=== PATIENT | female | born 1985 | race Caucasian/White ===

== ENCOUNTER 2017-09-27 05:31 | Inpatient (IN) | payer OTHER ==
[2017-09-26 11:16] VITALS: BMI 25.0
[2017-09-27] MEDS ORDERED: CEFAZOLIN/Water 2 GM/20 ML SYRINGE ONE (05:57)
[2017-09-27] MEDS ORDERED: Midazolam HCl 2 mg/2 ml Vial ONE (06:08)
[2017-09-27] MEDS ORDERED: Fentanyl 250 MCG/5 ML VIAL ONE (06:08)
[2017-09-27] MEDS ORDERED: Thrombin 5000 UNITS/5 ML VIAL ONE (06:16)
[2017-09-27] MEDS ORDERED: Sodium Chloride 0.9% 20 ML ONE (06:16)
[2017-09-27 06:29] LABS: Hemoglobin 14.2 g/dL (12.0-16.0); Mean Corpuscular HGB CONC 33.6 g/dL (32.0-36.0); Mean Corpuscular Hemoglobin 34.5 pg (27.0-31.0); Mean Platelet Volume 6.5 fL (7.4-10.4); Platelet Count 306 thou/uL (130-400); RBC Distribution Width 10.9 % (11.5-14.5); Red Blood Cell (RBC) Count 4.13 mill/uL (4.20-5.40); White Blood Cell (WBC) Count 7.1 thou/uL (4.8-10.8)
[2017-09-27 06:36] LABS: PTT 27.1 SEC (22.9-36.1); Prothrombin Time 13.2 SEC (12.0-14.7)
--- NOTE | 2017-09-27 06:51 | HP ---
REASON FOR ADMISSION: Here for neck surgery. HISTORY OF PRESENT ILLNESS: Ms. Carvalho is a 32-year-old woman who has experienced neck pain, imbalanc e and arm numbness for a number of years. MR images of the cervical spine reveal intervertebral disk disease causing both cervical spinal stenosis as well as foraminal disease at C5-6 and C6-7 and noreen use of the cord compression and imbalance she was offered surgical intervention. She is here for justin t operation. PAST MEDICAL HISTORY: Thyroid cancer, epilepsy and neck pain. PAST SURGICAL HISTORY: Thyroidectomy at age 24. Right shoulder rotator cuff surgery, left shoulder rotator cuff surgery and tubal ligation. MEDICATIONS: Naproxen and methocarbamol, as well as [place] and Flexeril for pain. She occasionally h as taken Valium and Fioricet in the past, but not currently. She takes levothyroxine and ____, ALLERGIES: No known drug allergies. FAMILY HISTORY: Father is alive with diabetes, hypertension, heart disease. She lists her mother as and with heart disease. SOCIAL HISTORY: She recently quit smoking. She is from a family of smokers, however. REVIEW OF SYSTEMS: Otherwise negative. PHYSICAL EXAMINATION: There is mild weakness of wrist extensors and finger extensors on the left. T here is also some C7 sensation on the left. The remainder of the motor sensory function in the upper extremities is normal. Normal findings on physical examination include her cranial nerves II-XII, cerebellar exam, cognitive function, level of ____ in her reflexes. IMAGING: Imaging studies with MR imaging of the cervical spine showing intervertebral disk disease r esulting in stenosis and foraminal compression at C5-6 and C6-C7. Flexion, extension x-rays are stab le. ASSESSMENT: Intervertebral disk disease with a combination of radiculopathy and cord compression at C5-6 and C6-7. PLAN: Today we will be performing a 2-level ACDF. If she does well and is safe for activities of [facility]. She can be discharged. Follow up arrangements will be made.
[2017-09-27] MEDS ORDERED: Lidocaine 1% PF 5 ML VIAL ONE (07:32)
[2017-09-27] MEDS ORDERED: PROPOFOL 200 MG/20 ML VIAL ONE (07:32)
[2017-09-27] MEDS ORDERED: Ondansetron HCl/PF 4 MG/2 ML Vial ONE (07:32)
[2017-09-27] MEDS ORDERED: ePHEDrine/0.9% NaCl/PF SYRINGE 50 mg/10 ml ONE (07:32)
[2017-09-27] MEDS ORDERED: Glycopyrrolate 0.2 MG/ML 5 ML SYRINGE ONE (07:32)
[2017-09-27] MEDS ORDERED: Dexamethasone 20 MG/5 ML VIAL ONE (07:32)
[2017-09-27] MEDS ORDERED: Fentanyl 100 MCG/2 ML VIAL ONE ×2 (09:39→10:59)
[2017-09-27] MEDS ORDERED: Morphine Sulfate 2 MG/ML SYRINGE SLOW IVP PRN (10:13)
[2017-09-27] MEDS ORDERED: Promethazine HCl 25 MG/ML VIAL SLOW IVP PRN (10:13)
[2017-09-27] MEDS ORDERED: HYDROmorphone 2 MG/ML VIAL SLOW IVP PRN (10:13)
[2017-09-27] MEDS ORDERED: Acetaminophen/Codeine 30-300mg Tablet PO PRN ×2 (10:14)
[2017-09-27] MEDS ORDERED: Morphine 4 MG/ML VIAL SLOW IVP PRN (10:14)
[2017-09-27] MEDS ORDERED: Promethazine HCl 12.5 MG SUPP PR PRN (10:14)
[2017-09-27] MEDS ORDERED: diphenhydrAMINE 50 MG/ML VIAL IVP PRN (10:14)
[2017-09-27] MEDS ORDERED: tiZANidine HCl 4 MG TAB PO PRN (10:14)
[2017-09-27] MEDS ORDERED: Promethazine HCl 25 MG/ML VIAL IM PRN (10:14)
[2017-09-27] MEDS ORDERED: Ondansetron HCl/PF 4 MG/2 ML Vial IVP PRN (10:14)
[2017-09-27] MEDS ORDERED: Promethazine 25 MG TAB PO PRN (10:14)
[2017-09-27] MEDS ORDERED: diphenhydrAMINE 25 MG CAP PO PRN (10:14)
[2017-09-27] MEDS ORDERED: Morphine 4 MG/ML VIAL ONE (11:20)
--- NOTE | 2017-09-27 11:35 | OP ---
DATE OF PROCEDURE: 09/27/2017 SURGEON: Ezequiel Rubio M.D. WARPMAN: Coral Wright PREOPERATIVE INDICATION: Treat pain, prevent neurological deterioration. PREOPERATIVE DIAGNOSES: Intervertebral disk disease with cervical radiculopathy and myelopathy, C5-6 and C6-7. POSTOPERATIVE DIAGNOSES: Intervertebral disk disease with cervical radiculopathy and myelopathy C5-C 6 and C6 OPERATIVE PROCEDURE: Anterior cervical diskectomy, intervertebral arthrodesis, placement of interver tebral biomechanical device, local morselized autograft, morselized Allograft, C5-6 and C6-7,operatin g microscope. PREOPERATIVE MEDICATION: Ancef 2 grams IV. DRAIN NUMBER: Zero. DRAIN TYPE: None. OPERATIVE DICTATION: The patient was brought to the operating room. General endotracheal anesthesia was induced. The patient was positioned supine on the operating table with her head supported by ge l-filled donut shaped head rest and a lateral fluoro radiograph was used to plan our incision. The n dayne was sterilely prepped and draped. We opened her previous thyroid incision and extended laterally on the right side of the neck. We controlled bleeding with bipolar cautery. We dissected sharply t o the platysma and cut this muscle in line with our incision. We continued our dissection medial to the sternocleidomastoid, lateral to the trachea and esophagus all the way down to the prevertebral sp dawson. We placed a marker at C5-6 and took a lateral fluoro radiograph to confirm the levels upon whic h we were operating. We then elevated the longus colli muscles off the anterior surface of C5, C6, a nd C7 and placed distraction pins at C5 and C7. We distracted across both of the intervening intersp aces. We widened our lateral retractors under the longus colli muscles then incised the disk spaces. We removed disk contents using curettes and rongeurs and approached the posterior longitudinal liga ment. We brought the operative microscope in the field. Under microscopic magnification using microsurgical techniques, we removed the remainder of the inter vertebral disks and the posterior longitudinal ligament across the entire interspace at C5-6 and agai n at C6-7 from one neural foramen to the other. We prepared the endplates for grafting using curets and measured the height at the interspace to 6 mm at both of the two interspaces. Two separate PEEK intervertebral graft measuring 6 mm in height were brought into the field. Bone that we removed duri ng posterior and anterior osteophytectomy was cleaned of all soft tissue attachments and added to dem ineralized bone matrix as our fusion substrate. That substrate was packed in the PEEK grafts and the grafts were advanced into both interspaces under radiographic guidance to the appropriate depth. We then removed the distraction pins and the operative microscope. A 28 mm anterior cervical plate was brought into the field. We drilled state pilot holes through the plate into the vertebral bodies at C5, C 6, and C7 and we affixed the plate using 14 mm screws. We used variable angle screws at C5, C6, and fixed angle screws at C7 and we engaged the locking mechanism over each of the 6 screws. AP and late ral fluoro radiographs confirmed adequate position of instrumentation. We irrigated copiously with b acitracin irrigation. We closed the wound in anatomic layers. We applied a sterile dressing. This was a clean case and no contamination.
[2017-09-27 12:54] VITALS: TEMP 98.6
[2017-09-27] MEDS ORDERED: CEFAZOLIN/Water 2 GM/20 ML SYRINGE SLOW IVP SCH (14:00)
[2017-09-27 15:15] VITALS: BP 104/63
[2017-09-27] MEDS ORDERED: Morphine 5 MG/ML SYRINGE SLOW IVP PRN (15:45)
== END 2017-09-27 16:10 | disposition home or self-care (01) | DRG 472 ==
LOC: SURG A 05:31 → 3SE 12:16
PROVIDERS: ADMIT Neurological Surgery; ATTEND Neurological Surgery
PROC: 0RG2071 Fusion of 2 or more Cervical Vertebral Joints with Autologous Tissue Substitute, Posterior Approach, Posterior Column, Open Approach (ICD-10-PCS; principal; 2017-09-27)
DX: M48.02 Spinal stenosis, cervical region (principal); M50.023 Cervical disc disorder at C6-C7 level with myelopathy; M50.123 Cervical disc disorder at C6-C7 level with radiculopathy; M50.20 Other cervical disc displacement, unspecified cervical region; Z85.850 Personal history of malignant neoplasm of thyroid; G40.909 Epilepsy, unspecified, not intractable, without status epilepticus; Z79.899 Other long term (current) drug therapy; Z79.891 Long term (current) use of opiate analgesic; Z87.891 Personal history of nicotine dependence
CPT/HCPCS: 36415; 76001; 85027; 85610; 85730; J2270; A4216; C1713; C1776; J1100; J2001; J2250; J2405; J2704; J3010; J3490; L0174